=== PATIENT | female | born 1975 | race Two or more races ===

== ENCOUNTER 2017-03-18 09:39 | Emergency (ER) | payer MEDICARE, MEDICAID ==
[~2017-03-18 09:39] MED LIST: ADVAIR 5001 DISK W/D; ALBUTEROL2.5 MG/0.1 IH; ALBUTEROL2.5 MG/0.5 INH; ALBUTEROL2.5 MG/3 M INH; AMOXICILLIN500 MG; ATIVAN0.5 MG PO; ATIVAN1 M1 PO; AVIANE1 TAB PO; BEE WITH C1 CAP PO; BENTYL10 M1 PO; BRINTELLIX; BRINTELLIX20 M1 PO; BROVANA15 MCG/22 INH; CARAFATE1 G2 PO; CELEXA20 MG; CELEXA40 MG; CHLORASEPTIC LO2 LOZ MT; CIPRO250 M1 PO; CLONAZEPAM1 M1 PO; CLONAZEPAM2 M2 PO; COMBIVENT INH14.7 GM; COMPAZINE10 MG PO; COMPAZINE25 M1 RC; CRESTOR20 MG; CYSTEX PLUS TA1 EACH PO; DEPAKOTE SPRIN125 M1 PO; DITROPAN XL5 M3 PO; DULERA 200 MCG/13 G1 IH; DULERA 200 MCG/13 G1 INH; DULERA 200 MCG/13 GM IH; FLEXERIL 10MG PO; FLEXERIL10 MG PO; FLOMAX0.4 M1 PO; FLONASE ALLERG9.9 ML; FLONASE16 G3 INH; GLUCOPHAGE500 MG; H PO; HALOPERIDOL5 MG; HYDROCODON-ACE1 EA16 PO; HYDROXYZINE HCL25 GM; IBUPROFEN800 M1 PO; KEFLEX500 M4 PO; KLONOPIN2 MG PO; LAMICTAL XR100 M1 PO; LAMICTAL XR100 MG PO; LAMICTAL XR200 MG PO; LAMICTAL XR25 MG PO; LAMICTAL100 M2 PO; LORTAB 5-325 M1 EAC1 PO; MAGNESIUM PO; MUCINEX600 M1 PO; MUCINEX600 MG PO; MYRBETRIQ50 M1 PO; NALTREXONE HCL50 MG PO; NEURONTIN100 MG PO; NEXIUM20 MG PO; NEXIUM40 M1 PO; NEXIUM40 MG PO; NORCO 5-325 TA1 EACH PO; NORCO 5/325 TAB1 TAB; NORCO 5/3251 TA1 PO; NORCO 5/3251 TAB PO; NORCO 7.5-3251 EACH PO; NORCO 7.5/3251 TA3 PO; PATANASE30.5 G1; PERCOCET 5-3251 EACH PO; PHENERGAN W/COD10 ML PO; PREDNISONE1 M1 PO; PREDNISONE10 M1 PO; PREDNISONE10 MG; PREDNISONE10 MG PO; PREDNISONE20 M1 PO; PREDNISONE20 MG; PREDNISONE20 MG PO; PREDNISONE5 M1 PO; PREVACID30 MG; PRILOSEC40 MG PO; PROLIXIN5 MG; PROMETHAZI6.25 MG/3 PO; PROVENTIL HFA6.7 G1 INH; PROVENTIL0.83 MG/ML IH; PROVENTIL17 G; PROVENTIL17 GM; PULMICORT0.5 MG/22 INH; QVAR7.3 GM IH; QVAR8.7 G1 IH; QVAR8.7 G1 INH; RANITIDINE HCL150 M3 PO; REGLAN10 M2 PO; SEROQUEL XR300 MG PO; SEROQUEL100 MG; SEROQUEL25 M2 PO; SEROQUEL300 MG; SEROQUEL400 MG PO; SINGULAIR10 M1 PO; SINGULAIR10 MG; SINGULAIR10 MG PO; SPIRIVA18 MC1 INH; SPIRIVA18 MCG IH; TAMSULOSIN HCL0.4 M1 PO; TEGRETOL200 MG; TESSALON PERLE100 M1 PO; TRAMADOL HCL50 M2 PO; TRANSDERM-SCOP1 EACH TD; TYLENOL325 MG; TYLENOL325 MG PO; VALIUM5 M1 VG; VENTOLIN HFA18 G2 INH; VISTARIL25 MG; VISTARIL50 MG; VIVELLE-DOT1 EAC1 TD; WELLBUTRIN SR150 M1 PO; WELLBUTRIN XL150 M1 PO; WELLBUTRIN XL150 MG PO; WELLBUTRIN XL300 M1 PO; WELLBUTRIN XL300 M2 PO; WELLBUTRIN XL300 M3 PO; XANAX1 M1 PO; XANAX1 MG PO; ZITHROMAX250 MG PO; ZOFRAN ODT8 MG PO; [UNRECOGNIZED DRUG - OTHER]; [UNRECOGNIZED DRUG - OTHER] PO
[2017-03-18] MEDS ORDERED: BISOPROLOL FUMAR5 M1 PO (10:10)
[2017-03-18 10:17] LABS: BASO % 0.5 % (0-2); EOS % 0.9 % (0-7); EOSINOPHIL ABSOLUTE COUNT 0.1 tho/cmm (0.0-0.7); HCT-HEMATOCRIT 42.2 % (34.0-49.0); HGB-HEMOGLOBIN 14.4 gm/dl (12.0-15.5); LYMPH % 29.2 % (20-45); LYMPH ABSOLUTE COUNT 1.7 tho/cmm (0.8-4.5); MCH (MEAN CORPUSCULAR HGB) 32.1 pg (28.0-32.0); MCHC MEAN CORPUSCULAR HGB CONC 34.1 % (32.0-36.0); MEAN PLATELET VOLUME 9.7 cmc (9.4-12.4); MONO % 17.2 % (0-12); NEUTROPHILS % 52.2 % (40-80); PLATELET COUNT 258 tho/cmm (150-450); RED BLOOD COUNT 4.49 mil/cmm (4.00-5.20); RED CELL DISTRIBUTION WIDTH 15.2 % (12.4-16.4); WHITE BLOOD COUNT 5.7 tho/cmm (4.0-10.0)
[2017-03-18 10:42] LABS: ALB/GLOB RATIO 0.8 (0.8-2.0); ALBUMIN 3.8 g/dl (3.5-5.0); ALKALINE PHOSPHATASE 118 U/L (33-138); ALT/SGPT 46 U/L (12-78); ANION GAP 16 mmol/L (0-20); AST/SGOT 55 U/L (10-40); BILIRUBIN,TOTAL 0.8 mg/dl (0-1.5); BLOOD UREA NITROGEN 7 mg/dl (6-24); CARBON DIOXIDE-VENOUS 22 mmol/L (22-32); CHLORIDE 104 mmol/l (96-110); CREATININE 0.89 mg/dl (0.50-1.10); GLUCOSE 140 mg/dL (70-110); LIPASE 100 U/L (73-393); MAGNESIUM 1.9 mg/dl (1.8-2.6); POTASSIUM 3.4 mmol/L (3.7-5.1); SODIUM 139 mmol/L (135-145); eGFR VALUE FOR BLACK >90 mL/Min
[2017-03-18] MEDS ORDERED: TYLENOL EXTRA500 M1 PO (11:00)
[2017-03-18] MEDS ORDERED: BEVESPI AEROS10.7 GM INH (11:00)
[2017-03-18] MEDS ORDERED: OMEPRAZOLE40 M2 PO (11:01)
[2017-03-18] MEDS ORDERED: NORCO 5-325 TA1 EACH PO (12:52)
[2017-03-18] MEDS ORDERED: COMPAZINE10 MG PO (12:52)
[2017-03-18] MEDS ORDERED: PROMETHAZINE12.5 M2 PO (13:34)
== END 2017-03-18 13:35 ==
LOC: EDMED 09:39
PROVIDERS: Emergency Medicine
DX: E87.6 Hypokalemia (principal); E86.0 Dehydration; R11.10 Vomiting, unspecified; R10.33 Periumbilical pain; R10.84 Generalized abdominal pain; I10 Essential (primary) hypertension; Z90.710 Acquired absence of both cervix and uterus; Z90.49 Acquired absence of other specified parts of digestive tract; Z88.8 Allergy status to other drugs, medicaments and biological substances
CPT/HCPCS: J1170; J2405; J7030; Q9967